=== PATIENT | female | born 1980 | race Two or more races ===

== ENCOUNTER 2025-06-15 08:48 | Emergency (ER) | payer MEDICAID, SELFPAY ==
[2025-06-15 09:06] VITALS: BP 128/88; PULSE 76; RESP 16; TEMP 36.6; O2SAT 99; BMI 36.6
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
[2025-06-15] MEDS: KETOROLAC INJ 60 MG/2 ML VIAL 30 MG IM (09:43)
== END 2025-06-15 11:27 | disposition home or self-care (01) ==
PROVIDERS: Emergency Provider Nurse Practitioner Family; PCP Internal Medicine
DX: S22.32XA Fracture of one rib, left side, initial encounter for closed fracture (principal); M85.80 Other specified disorders of bone density and structure, unspecified site; V49.9XXA Car occupant (driver) (passenger) injured in unspecified traffic accident, initial encounter
CPT/HCPCS: 71101; 96372; 99282; J1885